=== PATIENT | male | born 1960 | race Caucasian/White ===

== ENCOUNTER → 2017-08-13 | Outpatient (CLI) | payer MEDICARE ==
[~2017-08-13] MED LIST: ASPIRIN EC325 M1 PO; COZAAR 50 MG TA50 M2 PO; DEXAMETHASONE 44 M1 PO; HYDROCODONE-APA1 TA1 PO; IBUPROFEN 400400 M2 PO; LOPRESSOR25 PO; NOHOMEMEDICATIONS; NORCO 5-325 TA1 EACH PO; ONDANSETRON HCL4 M2 PO; SYNTHROID50 MCG PO; SYNTHROID75 MCG PO; XANAX 0.5 MG0.5 MG PO
--- NOTE | 2017-08-24 23:51 | ONC ---
[place] [address] RADIATION ONCOLOGY NOTE Name: GIOVANNI ASHRAF Room: [facility]#: [id number] Admission: 08/13/17 Attend Phys: Tone Duarte MD Discharge: Date of : 56 Report #: [id number] THIS REPORT FOR: //name// CC: Tone Riley MD DATE OF SERVICE: 08/13/2017 REFERRING PHYSICIANS: Kristopher Valencia MD; Dr. Rober Glover; Dr. Austin; Marlena Riley MD. [facility] phone is [phone]. 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 The patient received chemoradiotherapy. The patient's treatments were completed on 01/18/2015. PROCEDURE: Nasopharyngolaryngoscopy. FINDINGS: On nasopharyngolaryngoscopy via the right nostril after administration of a small amount of viscous lidocaine orally and 2% viscous lidocaine into the right nostril via a cotton swab, there were no visible lesions in the nasopharynx. There were no visible lesions in the posterior oropharynx or supraglottic area. The base of tongue had no visible lesions. There is no evidence of head and neck cancer. Thank you for allowing me to participate in the care of this patient. <ELECTRONICALLY SIGNED> By: Tone Duarte MD 08/24/17 2351 1247 1934Draimundo Duarte MD /nt
--- NOTE | 2017-08-24 23:58 | ONC ---
[facility] [address] [place] [address] RADIATION ONCOLOGY NOTE Name: GIOVANNI ASHRAF Room: [facility]#: [id number] Admission: 08/13/17 Attend Phys: Tone Duarte MD Discharge: Date of : 56 Report #: [id number] THIS REPORT FOR: //name// CC: Tone Glover MD DATE OF SERVICE: 08/13/[address] [facility] REFERRING PHYSICIANS: Kristopher Valencia M.D., Marlena Riley M.D., Dr. Austin, Dr. Rober Glover M.D. PRIMARY SITE AND HISTOPATHOLOGY: The patient had a stage [place] base of tongue cancer. The patient received chemotherapy and radiation therapy. Radiation treatments were completed on 01/18/2015. INTERVAL NOTE: The patient stopped taking his levothyroxine because of a recent financial hardship and he restarted recently. At this point, he feels like he is eating well. MEDICATIONS: He is now back on levothyroxine 50 mcg per day, but he stopped Levothyroxine prior to that time for about 2 months. He rarely took Xanax in the past. 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 Cigarettes: he quit smoking in 2005. He was chewing tobacco for a while, he quit chewing tobacco and was diagnosed with cancer in 2015. Ethanol: he still drinks beer, about a couple of beers a day. REVIEW OF SYSTEMS: RESPIRATORY: Breathing was baseline. He was not short of breath during his appointment. MUSCULOSKELETAL: He has good range of motion of his extremities. PHYSICAL EXAMINATION: VITAL SIGNS: The patient weighed 133.2 pounds on 08/13/2017, 135.8 pounds on 10/09/2016 and on 08/13/2017, blood pressure was 116/110, pulse 72, respirations 18. LYMPH NODES: He had no palpable cervical or supraclavicular lymphadenopathy. HEAD, EYES, EARS, NOSE AND THROAT: The patient is edentulous. He wears dentures. On nasopharyngolaryngoscopy via the right nostril after administration of a small amount of viscous lidocaine orally and 2% viscous lidocaine to the right nostril, there [place] [address] RADIATION ONCOLOGY NOTE Name: GIOVANNI ASHRAF Room: [facility]#: [id number] Admission: 08/13/17 Attend Phys: Tone Duarte MD Discharge: Date of : 56 Report #: [id number] nasopharynx, posterior oropharynx or supraglottic larynx. The base of tongue had no visible lesions. True vocal cords were normally mobile bilaterally. HEART: Had a regular rate and rhythm without murmur. LUNGS: were clear to auscultation. LABORATORY DATA: From 08/08/2017, sodium 134, creatinine 0.84, AST 128. White blood count 6.2, hemoglobin 15.2, platelets were 17,000 . T4 was less than 0.4. TSH was 85.946. RADIOLOGIC DATA: From 10/04/[address] and chest CT showed no evidence of recurrent tumor or cervical lymphadenopathy in the neck and there was a stable thoracic aortic aneurysm measuring 5.3 cm. ASSESSMENT AND PLAN: 1. History of head and neck cancer- There is no evidence of head and neck cancer at this time. The patient had a requisition written for a complete metabolic panel, TSH level and a neck and chest CT in September 2017 or October 2017. The patient was asked to schedule a followup appointment to see me afterwards. 2. Hypothyroidism- The patient stopped taking his levothyroxine. He was given a refill for his 50 mcg levothyroxine. A TSH will be checked around September or October 2017. He will be asked to schedule a follow up appointment to see me afterwards. 3. Aortic aneurysm- The patient follows up with his sales agent protective service, Dr. Glover with regard to this issue. 4. Ethanol intake- He was told to try to taper off taking alcohol because it is causing elevated liver enzymes. 5. Elevated blood pressure- I asked the patient to talk with his primary care physician concerning his elevated blood pressures so the primary care physician can manage that issue. Thank you for allowing me to participate in the care of this patient. <ELECTRONICALLY SIGNED> By: Tone Duarte MD 08/24/17 2358 1251 2035Dajamari Duarte MD /nt
== END ==
LOC: M.RTH 04:42
DX: E03.9 Hypothyroidism, unspecified (principal); I71.9 Aortic aneurysm of unspecified site, without rupture; F10.10 Alcohol abuse, uncomplicated; Z85.841 Personal history of malignant neoplasm of brain

== ENCOUNTER → 2017-12-03 | Outpatient (CLI) | payer MEDICARE ==
--- NOTE | 2017-12-14 12:50 | ONC ---
[place] [address] RADIATION ONCOLOGY NOTE Name: GIOVANNI ASHRAF Room: [facility]#: [id number] Admission: 12/03/17 Attend Phys: Tone Duarte MD Discharge: Date of : 56 Report #: [id number] THIS REPORT FOR: //name// CC: Tone Hancock MD DATE OF SERVICE: 12/03/2017 REFERRING PHYSICIANS: Marlena Quezada MD; Kristopher Valencia MD; Dr. Rober Glover, Dr. Austin. [facility] phone is [phone]. 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 The patient received chemoradiotherapy. The patient's radiation treatments were completed on 01/18/2015. PROCEDURE: Nasopharyngolaryngoscopy. FINDINGS: On nasopharyngolaryngoscopy via the right nostril after administration of a small amount of viscous lidocaine orally and 2% viscous lidocaine to the right nostril via a cotton swab; there were no visible lesions in the nasopharynx and no visible lesions in the posterior oropharynx or supraglottic area. The base of tongue had no visible lesions. There is no evidence of head and neck cancer. Thank you for allowing me to participate in the care of this patient. <ELECTRONICALLY SIGNED> By: Tone Duarte MD 12/14/17 1250 1155 [id number] Duarte MD /nt
--- NOTE | 2017-12-14 13:06 | ONC ---
[place] [address] RADIATION ONCOLOGY NOTE Name: GIOVANNI ASHRAF Room: [facility]#: [id number] Admission: 12/03/17 Attend Phys: Tone Duarte MD Discharge: Date of : 56 Report #: [id number] THIS REPORT FOR: //name// CC: Tone Morales DATE OF SERVICE: 12/03/2017 REFERRING PHYSICIANS: 1. Kristopher Valencia M.D. 2. Marlena Riley MD 3. Jossy Austin MD 4. Rober Glover MD 5. Palmer Hancock MD [facility]: [phone] PRIMARY SITE AND HISTOPATHOLOGY: The patient had a stage RHEA base of tongue cancer. The patient received chemotherapy and radiation therapy. Radiation therapy treatment was completed on 01/18/2013. INTERVAL NOTE: The patient is taking 75 mcg of levothyroxine per day at this time. He indicated that he had lost some weight because he underwent cardiothoracic surgery to repair an aneurysm. That is when he had some weight loss. He is edentulous. He felt like he was eating well at this time. He is little bit fatigued after his operation, but he is slowly regaining his strength. MEDICATIONS: 75 mcg of levothyroxine per day, aspirin, metoprolol, losartan. 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 Cigarettes: he quit smoking in 2005. He was chewing tobacco for a while, and he quit chewing tobacco when he was diagnosed with cancer in 2014. Ethanol: he still drinks about 2 beer a day. REVIEW OF SYSTEMS: RESPIRATORY: Breathing was baseline, he was not short of breath during his appointment. MUSCULOSKELETAL: He had good range of motion of his extremities. PHYSICAL EXAMINATION: [place] [address] RADIATION ONCOLOGY NOTE Name: GIOVANNI ASHRAF Room: [facility]#: [id number] Admission: 12/03/17 Attend Phys: Tone Duarte MD Discharge: Date of : 56 Report #: [id number] VITAL SIGNS: The patient weighed 128 pounds on 12/03/2017, 133.2 pounds on 08/13/2017. On 12/03/2017, blood pressure was 160/94 ( He is still working with his referring physicians concerning his antihypertensive medication and he said that the medication tis being adjusted), respirations 20, pulse 66, oxygen saturation 99% on room air. LYMPH NODES: He had no palpable cervical or supraclavicular lymphadenopathy. HEAD, EYES, EARS, NOSE AND THROAT: The patient is edentulous. He wears upper and lower dentures. Mouth had no suspicious visible lesions or suspicious palpable lesions. On nasopharyngolaryngoscopy via the right nostril after administration of a small amount of viscous lidocaine orally and 2% viscous lidocaine to the right nostril. There were no visible lesions in the nasopharynx, posterior oropharynx or supraglottic larynx. Base of tongue had no visible lesions. The true vocal cords were normally mobile bilaterally. HEART: Had a regular rate and rhythm without murmur. LUNGS: were clear to auscultation. LABORATORY DATA: From 12/02/2017, TSH was 3.87 on his dose of 75 mcg of levothyroxine per day. Sodium 139, potassium 4.9, BUN 8, creatinine 0.77. AST was slightly elevated at 84. ALT was within normal limits at 56. RADIOLOGIC DATA: The patient had a neck and chest CT on 09/05/2017, which at that time, he had some ill-defined infiltrate which was thought to be an upper respiratory infection and so he was started on antibiotics. At that time, he also had some pathologically enlarged mediastinal hilar lymph nodes which were thought to be related to the upper respiratory infection. After that CT he was scheduled for an operation for his aneurysm. His aneurysm was measuring about 5.3 cm. prior to his aneurysm repair. ASSESSMENT AND PLAN: 1. History of head and neck cancer- There is no evidence of head and neck cancer at this time. A neck and chest CT will be ordered in approximately 1 to 6 weeks and the patient will be asked to schedule a follow up appointment to see me afterwards. 2. Hypothyroidism- The patient's TSH is within normal limits with him taking 75 mcg of levothyroxine per day. He was asked to schedule a follow up appointment with me in approximately 1 to 6 weeks. 3. Aortic aneurysm that has been repaired- He underwent surgical repair of the aortic aneurysm. 4. Ethanol intake- In the past he had been told to [place] [address] RADIATION ONCOLOGY NOTE Name: GIOVANNI ASHRAF Room: [facility]#: [id number] Admission: 12/03/17 Attend Phys: Tone Duarte MD Discharge: Date of : 56 Report #: [id number] alcohol and he appears to have tried to decrease the amount that he takes. 5. Elevated blood pressure- He is working with his referring physicians with regards to his antihypertensive medications. 6. Resolving pneumonia- He had antibiotics in August, so neck and chest CT will be ordered in approximately 1 to 6 weeks and the patient will be asked to schedule a follow up appointment with me afterwards. Thank you for allowing me to participate in the care of this patient. <ELECTRONICALLY SIGNED> By: Tone Duarte MD 12/14/17 1306 1210 1933Draimundo Duarte MD /nt
== END ==
LOC: M.RTH 10-08 09:30
DX: Z51.11 Encounter for antineoplastic chemotherapy (principal); Z51.0 Encounter for antineoplastic radiation therapy; I10 Essential (primary) hypertension; E03.9 Hypothyroidism, unspecified; Z85.841 Personal history of malignant neoplasm of brain; Z85.850 Personal history of malignant neoplasm of thyroid

== ENCOUNTER → 2017-12-19 | Outpatient (CLI) | payer MEDICARE ==
--- NOTE | 2017-12-28 23:17 | ONC ---
[address] [address] RADIATION ONCOLOGY NOTE Name: GIOVANNI ASHRAF Room: [facility]#: [id number] Admission: 12/19/17 Attend Phys: Tone Duarte MD Discharge: Date of : 56 Report #: [id number] THIS REPORT FOR: //name// CC: Tone Glover DATE OF SERVICE: 12/19/2017 REFERRING PHYSICIANS: Kristopher Valencia MD; Marlena Riley MD; Dr. Rober Glover; and also Dr. Morales. [facility] phone is [phone]. PRIMARY SITE AND HISTOPATHOLOGY: The patient had a stage a RHEA base of tongue cancer. The patient received chemotherapy and radiation therapy. Radiation therapy treatments were completed on 01/18/2013. INTERVAL NOTE: The patient is trying to gain weight back. He lost some weight when he had an aneurysm repair. He underwent cardiothoracic surgery for that. The patient is edentulous though he feels like he is eating well, he has a good appetite overall and he feels rather good. MEDICATIONS: 75 mcg of levothyroxine as well as aspirin, metoprolol, losartan. 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 Cigarettes: he quit smoking in 2005. He used to chew tobacco for a while and he quit chewing tobacco when he was diagnosed with cancer. Ethanol: he still about 2 beers a day. REVIEW OF SYSTEMS: RESPIRATORY: Breathing was baseline. He was not short of breath during his appointment. MUSCULOSKELETAL: Good range of motion. PHYSICAL EXAMINATION: VITAL SIGNS: The patient weighed 130 pounds on 12/19/2017. He was 128 pounds on 12/03/2017. On 12/19/2017, blood pressure was 131/86, pulse 76, respirations 20, oxygen saturation 95%. LYMPH NODES: He had no palpable cervical or supraclavicular lymphadenopathy. HEAD, EYES, EARS, NOSE AND THROAT: The patient is edentulous. He wears upper and lower dentures. Mouth had no suspicious visible lesions or suspicious palpable lesions. Airway: He just had [place] [address] RADIATION ONCOLOGY NOTE Name: GIOVANNI ASHRAF Room: [facility]#: [id number] Admission: 12/19/17 Attend Phys: Tone Duarte MD Discharge: Date of : 56 Report #: [id number] 12/03/2017, which was unremarkable, so that was not repeated at this time. HEART: Had a regular rate and rhythm without murmur. LUNGS: were Clear to auscultation. LABORATORY DATA: From 12/02/2017, sodium 139, potassium 4.9, BUN 8, creatinine 0.77, AST 84, ALT 56, alkaline phosphatase 95. TSH 3.87, so that is within normal limits on his present dose of levothyroxine. RADIOLOGIC DATA: From 12/08/2017, the patient had a neck and chest CT on 12/08/[address] showed post-surgical changes of the base of tongue without evidence of local tumor recurrence. Chest CT showed no evidence of thoracic metastatic disease. There was resolution of a pneumonia he had and decrease in the size of the reactive lymph nodes. He also had an interval median sternotomy with repair of the ascending aorta and also some postoperative changes. ASSESSMENT AND PLAN: 1. History of head and neck cancer- There is no evidence of head and neck cancer at this time. A requisition was written for a complete blood count, complete metabolic panel in 07/2018. The patient was asked to schedule a followup appointment to see me afterwards. 2. Hypothyroidism- The patient's TSH is within normal limits on his present dose of 75 mcg of levothyroxine. He was given a refill for his levothyroxine and he has a TSH ordered in 07/2018. He was asked to schedule a follow up appointment to see me afterwards. 3. Hypertension- The patient takes metoprolol and that is managed by his referring physicians. Thank you for allowing me to participate in the care of this patient. <ELECTRONICALLY SIGNED> By: Tone Duarte MD 12/28/17 2317 1104 1418Tone Duarte MD /nt
== END ==
LOC: M.RTH 04:32
DX: Z08 Encounter for follow-up examination after completed treatment for malignant neoplasm (principal); E03.9 Hypothyroidism, unspecified; I10 Essential (primary) hypertension; Z85.89 Personal history of malignant neoplasm of other organs and systems

== ENCOUNTER → 2018-10-09 | Outpatient (CLI) | payer MEDICARE ==
--- NOTE | ~2018-10-09 | ONC ---
[address] [address] RADIATION ONCOLOGY NOTE Name: GIOVANNI ASHRAF Room: [facility]#: [id number] Admission: 10/09/18 Attend Phys: Tone Duarte MD Discharge: Date of : 56 Report #: [id number] THIS REPORT FOR: //name// CC: Tone Hancock MD DATE OF SERVICE: 10/09/2018 RADIATION ONCOLOGY FOLLOWUP NOTE [facility] phone is [phone]. REFERRING PHYSICIANS: Include: 1. Dr. Morales. 2. Dr. Riley. 3. Dr. Kristopher Vaelncia. 4. Dr. Rober Glover. 5. Dr. Palmer Hancock. 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 Radiation therapy was completed on 01/18/2013. INTERVAL NOTE: The patient is taking 75 mcg of levothyroxine per day. He is able to eat a regular diet. He did have an aneurysm repair in the past and continues to follow up with his cardiothoracic surgeon. MEDICATIONS: Levothyroxine 75 mcg per day. He takes also metoprolol, losartan and Xanax as needed. 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 Cigarettes, he quit smoking in 2005. He was chewing tobacco for a while and was chewing tobacco when he was diagnosed with cancer in 2014. Ethanol, he still drinks about 2 beers a day. REVIEW OF SYSTEMS: RESPIRATORY: Breathing was baseline. He was not short of breath during his appointment. MUSCULOSKELETAL: He has good range of motion of his extremities. PHYSICAL EXAMINATION: [place] [address] RADIATION ONCOLOGY NOTE Name: GIOVANNI ASHRAF Room: [facility]#: [id number] Admission: 10/09/18 Attend Phys: Tone Duarte MD Discharge: Date of : 56 Report #: [id number] VITAL SIGNS: The patient weighed 133.2 pounds on 10/09/2018 and 130 pounds on 12/19/2017 and then on 10/09/2018, blood pressure 170/89. He forgot to take his metoprolol for the last 4 days, he just started it today, because he ran out. Pulse 88, respirations 18 and oxygen saturation 97%. LYMPH NODES: He had no palpable cervical or supraclavicular lymphadenopathy. HEAD, EYES, EARS, NOSE AND THROAT EXAMINATION: The patient is edentulous. He wears upper and lower dentures. He has no suspicious visible lesions in the mouth. No suspicious palpable lesions in the mouth. On nasopharyngolaryngoscopy via the right nostril, after administration of a small amount of viscous lidocaine orally and 2% viscous lidocaine to the right nostril, there were no visible lesions in the nasopharynx, posterior oropharynx or supraglottic larynx. Base of tongue had no visible lesions. True vocal cords are normally mobile bilaterally. HEART: Had a regular rate and rhythm, without murmur. LUNGS: Clear to auscultation. LABORATORY DATA: From 10/02/2017, sodium 138, potassium 4.2, BUN 10 and creatinine 0.78. AST 114, ALT 76. White blood count 6.8, hemoglobin 14.3 and platelets 153,000. TSH was within normal limits at 3.37, with him taking 75 mcg of levothyroxine per day. ASSESSMENT AND PLAN: 1. History of head and neck cancer. There is no evidence of head and neck cancer at this time. A CBC, complete metabolic panel and TSH will be ordered in 07/2019 and the patient will be asked to follow up with me afterwards. 2. Hypothyroidism. The patient was given a refill for his 75 mcg of levothyroxine and a TSH will be checked in 07/2019. He will be asked to follow up with me afterwards. 3. Aortic aneurysm has been repaired. He continues to follow up with his cardiothoracic surgeon. 4. Ethanol intake. His AST has been going up and so he has been told to try to taper off the Ethanol intake. 5. Elevated blood pressure. The patient takes antihypertensive; he just has not taken it for about 4 days. He was told to resume taking his antihypertensive medications and that is managed by his referring physicians. Thank you for allowing me to participate in the care of this patient. By: [id number] Duarte MD /stacey
--- NOTE | ~2018-10-09 | ONC ---
[address] [address] RADIATION ONCOLOGY NOTE Name: GIOVANNI ASHRAF Room: [facility]#: [id number] Admission: 10/09/18 Attend Phys: Tone Duarte MD Discharge: Date of : 56 Report #: [id number] THIS REPORT FOR: //name// CC: Tone Ricardoen DATE OF SERVICE: 10/09/2018 RADIATION ONCOLOGY PROCEDURE NOTE DATE OF PROCEDURE: 10/09/2018. [facility] phone is [phone]. PRIMARY SITE AND HISTOPATHOLOGY: The patient has findings consistent with a stage A base of tongue cancer. The patient received chemoradiotherapy. The patient's radiation treatments were completed on 01/18/2015. PROCEDURE: Nasopharyngolaryngoscopy. FINDINGS: On nasopharyngolaryngoscopy via the right nostril, after administration of a small amount of viscous lidocaine orally and 2% viscous lidocaine to the right nostril via a cotton swab, there were no visible lesions in the nasopharynx. No visible lesions in the posterior oropharynx or supraglottic area. The base of tongue had no visible lesions. The true vocal cords were normally mobile bilaterally, with no visible lesions. There was no evidence of head and neck cancer. Thank you for allowing me to participate in the care of this patient. By: [id number] lizz Borja
== END ==
LOC: M.RTH 07-22 09:30
DX: Z08 Encounter for follow-up examination after completed treatment for malignant neoplasm (principal); Z85.810 Personal history of malignant neoplasm of tongue; I10 Essential (primary) hypertension; E03.9 Hypothyroidism, unspecified; Z92.3 Personal history of irradiation; Z92.21 Personal history of antineoplastic chemotherapy; Z79.899 Other long term (current) drug therapy; Z88.0 Allergy status to penicillin; Z79.82 Long term (current) use of aspirin; Z98.890 Other specified postprocedural states

== ENCOUNTER → 2019-11-05 | Outpatient (CLI) | payer MEDICARE ==
--- NOTE | 2019-11-14 18:13 | ONC ---
[place] [address] RADIATION ONCOLOGY NOTE Name: GIOVANNI ASHRAF Room: [facility]#: [id number] Admission: 11/05/19 Attend Phys: Tone Duarte MD Discharge: Date of : 56 Report #: [id number] THIS REPORT FOR: //name// CC: Tone Valencia MD DATE OF SERVICE: 11/05/2019 RADIATION ONCOLOGY PROCEDURE NOTE REFERRING PHYSICIANS: Include Dr. Gan, Dr. Neri Morales; Marlena Riley MD; and Kristopher Valencia MD DATE OF PROCEDURE: 11/05/2019 [facility] phone is [phone]. PRIMARY SITE AND HISTOPATHOLOGY: The patient had findings consistent with a stage RHEA base of tongue cancer and the patient received chemoradiotherapy. The patient's radiation treatments were completed on 01/18/2015. PROCEDURE: Nasopharyngolaryngoscopy. FINDINGS: On nasopharyngolaryngoscopy via the right nostril after administration of a small amount of viscous lidocaine orally and 2% viscous lidocaine to the right nostril via a cotton swab, there were no visible lesions in the nasopharynx. There were no visible lesions in the posterior oropharynx or supraglottic area. The base of tongue had no visible lesions. True vocal cords were normally mobile bilaterally with no visible lesions. There was no evidence of head and neck cancer. Thank you for allowing me to participate in the care of this patient. <ELECTRONICALLY SIGNED> By: Tone Duarte MD 11/14/19 1813 1233 1243Draimundo Duarte MD /nt
--- NOTE | 2019-11-14 20:00 | ONC ---
[place] [address] RADIATION ONCOLOGY NOTE Name: GIOVANNI ASHRAF Room: [facility]#: [id number] Admission: 11/05/19 Attend Phys: Tone Duarte MD Discharge: Date of : 56 Report #: [id number] THIS REPORT FOR: //name// CC: Tone Riley MD DATE OF SERVICE: 11/05/2019 RADIATION ONCOLOGY FOLLOWUP NOTE REFERRING PHYSICIANS: Include Palmer Hancock MD; Rober Glover MD; Kristopher Valencia MD; Marlena Riley MD and Neri Morales MD PRIMARY SITE AND HISTOPATHOLOGY: The patient had a stage RHEA base of tongue cancer and received chemotherapy and radiation therapy. Radiation therapy was completed on 01/18/2015. INTERVAL NOTE: The patient is taking 75 mcg of levothyroxine per day. He is eating a regular diet. He had an aneurysm repair in the past and continues to follow up with his cardiothoracic surgeon, Dr. Hancock. MEDICATIONS: Include 75 mcg of levothyroxine per day, metoprolol, losartan, and Xanax as needed. 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 He is on disability. Cigarettes: he quit smoking cigarettes in 2005. He was chewing tobacco for a while, but he quit chewing tobacco when he was diagnosed with cancer in 2014. Ethanol: he started drinking a little bit more beer lately around the time of his birthday. REVIEW OF SYSTEMS: RESPIRATORY: Breathing was baseline. He was not short of breath. MUSCULOSKELETAL: He had good range of motion in his upper extremities. PHYSICAL EXAMINATION: VITAL SIGNS: The patient weighed 130.4 pounds on 11/05/2019, 133.2 pounds on 10/09/2018. On 11/05/2019, blood pressure was 168/80, pulse 68, temperature 96.6 degrees Fahrenheit. LYMPH NODES: He had no palpable cervical or supraclavicular lymphadenopathy. HEAD, EYES, EARS, NOSE AND THROAT: The patient is edentulous. He wears upper and lower dentures. He had no suspicious visible lesions in the mouth. He had no suspicious palpable lesions in the mouth either. [place] [address] RADIATION ONCOLOGY NOTE Name: GIOVANNI ASHRAF Room: [facility]#: [id number] Admission: 11/05/19 Attend Phys: Tone Duarte MD Discharge: Date of : 56 Report #: [id number] via the right nostril after administration of a small amount of viscous lidocaine orally and 2% viscous lidocaine to the right nostril, there were no visible lesions in the nasopharynx. There were no visible lesions in the posterior oropharynx, supraglottic larynx. Base of tongue had no visible lesions. The true vocal cords were normally mobile bilaterally. HEART: Had a regular rate and rhythm without murmur. LUNGS: were clear to auscultation. LABORATORY DATA: From 11/03/2019, hemoglobin was 14.7, platelets were 226,000, white blood cell count was 4.1, sodium 141, potassium 3.5, BUN was 8, creatinine 0.81. His AST was elevated at 157 and his ALT was elevated at 81 and a TSH was within normal limits at 0.56 with him taking 75 mcg of levothyroxine. RADIOLOGIC DATA: From 04/23/2019, he had a chest CT, which showed mild emphysema. There was no evidence of thoracic metastatic disease and a neck CT showed post-therapeutic changes in the base of tongue without evidence of tumor recurrence or cervical lymphadenopathy. ASSESSMENT AND PLAN: 1. History of head and neck cancer- There is no evidence of head and neck cancer. A requisition was written for a complete blood count, complete metabolic panel in 10/2020. He was asked to schedule a follow up appointment with me afterwards. He also has a followup appointment as well as CT scans in 04/2020 with his medical oncologist, Dr. Riley. 2. Hypothyroidism- The patient's TSH within normal limits with him taking 75 mcg of levothyroxine per day. He continues to take 75 mcg of Levothyroxine per day. A TSH was ordered in 10/2020. He was asked to schedule a followup appointment to see me afterwards. 3. Ethanol intake- He was encouraged to reduce his beer intake (liver enzymes went up) and he said he will do so. 4. Hypertension. The patient takes metoprolol and losartan that is managed by his referring physicians. Thank you for allowing me to participate in the care of this patient. <ELECTRONICALLY SIGNED> By: Tone Duarte MD 11/14/191999 [id number] [id number] Duarte MD /nt
== END ==
LOC: M.RTH 10-22 09:00
PROVIDERS: ATTEND Radiology Radiation Oncology
DX: Z51.0 Encounter for antineoplastic radiation therapy (principal); E03.9 Hypothyroidism, unspecified; I10 Essential (primary) hypertension; Z85.810 Personal history of malignant neoplasm of tongue; Z87.891 Personal history of nicotine dependence; Z79.899 Other long term (current) drug therapy; Z85.89 Personal history of malignant neoplasm of other organs and systems